=== PATIENT | male | born 1945 | race Caucasian/White ===

== ENCOUNTER 2017-03-31 13:05 | Emergency (ER) | payer MEDICARE, OTHER ==
--- NOTE | 2017-03-31 13:14 | EDM.PDOC ---
ED HPI GENERAL MEDICAL PROBLEM - General Chief Complaint: General Stated Complaint: COMGING FROM [facility] Time Seen by Provider: 03/31/17 13:11 Source of Information: Reports: Patient, Family, Old Records, RN, RN Notes Reviewed History Limitations: Reports: No Limitations - History of Present Illness INITIAL COMMENTS - FREE TEXT/NARRATIVE: [place] nurse called reporting that pt was being sent to the ER by POV with c/o increasing falls and confusion for the past one week with worsening symptoms. Pt has Hx of lung CA followed by oncologist at the [facility] in [place]. Pt reports several falls, but attributed them mostly to working outside and perhaps getting too tired, or possibly dehydrated, etc. Pt has not noticed any confusion. Pt's agrees with the Hx of falls, but states that she has noticed some mild confusion. Denies fever, chills, lightheadedness, visual changes, or new/unusual headaches. Onset: Gradual Duration: Week(s): (approx. 1 wk), Recurring Improves with: Reports: None Worsens with: Reports: None Associated Symptoms: Reports: No Other Symptoms Headache Pain Score (Numeric/FACES): 1 - Related Data Allergies Allergy/AdvReac Type Severity Reaction Status Date / Time No Known Allergies Allergy Verified 07/18/15 02:43 Home Meds: Home Meds Aprepitant [Emend] 80 mg PO DAILY PRN 07/18/15 [History] Atropine/Diphenoxylate [Diphenoxylate-Atropine] 2.5 mg PO Q6HR PRN 07/18/15 [ History] Dexamethasone 4 mg PO TID 07/18/15 [History] Enoxaparin [Lovenox] 80 mg SQ DAILY 07/18/15 [History] Hydrochlorothiazide/Lisinopril [Lisinopril/HCTZ 20-12.5 MG] 1 tab PO DAILY 07/18 [History] Loperamide HCl [Loperamide] 2 mg PO DAILY 07/18/15 [History] Past Medical History Cardiovascular History: Reports: Blood Clots/VTE/DVT, Hypertension Other Respiratory History: lung cancer Oncologic (Cancer) History: Reports: Lung Social & Family History - Family History Family Medical History: Noncontributory - Tobacco Use Smoking Status *Q: Never Smoker Second Hand Smoke Exposure: No - Caffeine Use Caffeine Use: Reports: Coffee - Recreational Drug Use Recreational Drug Use: No - Living Situation & Occupation Living situation: Reports: , with Spouse Occupation: Retired ED ROS GENERAL - Review of Systems Review Of Systems: ROS reveals no pertinent complaints other than HPI. ED EXAM, GENERAL - Physical Exam Exam: See Below Exam Limited By: No Limitations General Appearance: Alert, WD/WN, No Apparent Distress Eye Exam: Bilateral Eye: EOMI, Normal Fundi, Normal Inspection, PERRL Ears: Normal External Exam, Hearing Grossly Normal Nose: Normal Inspection, Normal Mucosa, No Blood Throat/Mouth: Normal Inspection, Normal Voice, No Airway Compromise Head: Atraumatic, Normocephalic Neck: Normal Inspection, Supple, Non-Tender, Full Range of Motion Respiratory/Chest: No Respiratory Distress, Lungs Clear, No Accessory Muscle Use , Decreased Breath Sounds Cardiovascular: Regular Rate, Rhythm, No Edema, No JVD GI/Abdominal: Normal Bowel Sounds, Soft, Non-Tender, No Distention (Male) Exam: Deferred Rectal (Males) Exam: Deferred Back Exam: Normal Inspection Extremities: Normal Inspection, Normal Range of Motion, Non-Tender, No Pedal Edema Neurological: Alert, Oriented, CN II-XII Intact, Normal Cognition, No Motor/ Sensory Deficits Psychiatric: Normal Affect, Normal Mood Skin Exam: Warm, Dry, Intact, Normal Color, No Rash Course - Vital Signs Last Recorded V/S: Last Vital Signs Temp 36.6 C 03/31/17 13:12 Pulse 60 03/31/17 14:58 Resp 16 03/31/17 14:58 BP 126/60 03/31/17 14:58 Pulse Ox 100 03/31/17 14:58 - Orders/Labs/Meds Labs: Laboratory Tests 03/31/17 03/31/17 03/31/17 Range/Units 13:45 13:45 13:49 WBC 3.3 L (5.0-10.0) 10^3/uL RBC 3.30 L (4.6-6.2) 10^6/uL Hgb 10.2 L (14.0-18.0) g/dL Hct 31.9 L (40.0-54.0) % MCV 96.7 (80-100) fL MCH 30.9 (27.0-34.0) pg MCHC 32.0 L (33.0-35.0) g/dL Plt Count 174 (150-450) 10^3/uL Neut % (Auto) 47.9 (42.2-75.2) % Lymph % (Auto) 34.0 (20.5-50.1) % [place] % (Auto) 16.3 H (2-8) % Eos % (Auto) 1.2 (1.0-3.0) % Baso % (Auto) 0.6 (0.0-1.0) % Sodium 138 (135-145) mmol/L Potassium 4.1 (3.6-5.0) mmol/L Chloride 105 (101-111) mmol/L Carbon Dioxide 26.0 (21.0-31.0) mmol/L Anion Gap 11.1 BUN 22 H (7-18) mg/dL Creatinine 1.6 H (0.6-1.3) mg/dL Est Cr Clr Drug Dosing 41.56 mL/min Estimated GFR (MDRD) 43 BUN/Creatinine Ratio 13.75 Glucose 105 (74-105) mg/dL Calcium 9.1 (8.4-10.2) mg/dl Total Bilirubin 0.7 (0.2-1.0) mg/dL AST 67 H (10-42) IU/L ALT 81 H (10-60) IU/L Alkaline Phosphatase 241 H (42-121) IU/L Total Protein 7.2 (6.7-8.2) g/dl Albumin 3.6 (3.2-5.5) g/dl Globulin 3.6 Albumin/Globulin Ratio 1.00 Urine Color Yellow (YELLOW) Urine Appearance Clear (CLEAR) Urine pH 6.5 (5.0-9.0) Ur Specific [place] 1.020 (1.005-1.030) Urine Protein Negative (NEGATIVE) Urine Glucose (UA) Negative (NEGATIVE) Urine Ketones Negative (NEGATIVE) Urine Occult Blood Trace-intact H (NEGATIVE) Urine Nitrite Negative (NEGATIVE) Urine Bilirubin Negative (NEGATIVE) Urine Urobilinogen 1.0 (0.2-1.0) mg/dL Ur Leukocyte Esterase Negative (NEGATIVE) Urine RBC 0-5 /HPF Urine WBC 0-5 (0-5/HPF) /HPF Urine Bacteria Rare (0-FEW/HPF) /HPF Urine Mucus Rare /LPF Meds: Medications Discontinued Medications Generic Name Dose Route Start Last Admin Trade Name Freq PRN Reason Stop Dose Admin Dexamethasone 12 mg 03/31/17 15:09 03/31/17 15:15 Dexamethasone IVPUSH 03/31/17 15:10 12 mg ONETIME ONE Administration Iopamidol 50 ml 03/31/17 14:07 03/31/17 14:08 Isovue-300 (61%) IVPUSH 03/31/17 14:08 50 ml ONETIME ONE Administration Sodium Chloride 10 ml 03/31/17 13:23 Saline Flush FLUSH ASDIRECTED PRN Keep Vein Open - Radiology Interpretation Free Text/Narrative:: CT Head: Metastatic lesion at the right cerebral hemisphere with tremendous edema and mass effect per Rad. report. CT Results Date: 03/31/17 - Re-Assessments/Exams Free Text/Narrative Re-Assessment/Exam: Consulted with pt's oncologist at [facility]. He agrees to accept pt as a direct admit. Pt will be transferred by ground ambulance to his service. Departure - Departure Time of Disposition: 15:00 Disposition: DC/Tfer to Acute Hospital 02 Condition: Serious Clinical Impression: Metastatic cancer to brain Lung cancer, primary, with metastasis from lung to other site Qualifiers: Laterality: unspecified laterality Qualified Code(s): C34.90 - Malignant neoplasm of unspecified part of unspecified bronchus or lung - Discharge Information Referrals: Esvin Burk MD [Primary Care Provider] - Forms: ED Department Discharge
[2017-03-31] MEDS ORDERED: Sodium Chloride 0.9% 10 ML Syringe FLUSH PRN (13:23)
[2017-03-31] MEDS ORDERED: Iopamidol 612 MG/ML 50 ML SDV IVPUSH ONE (14:07)
--- NOTE | 2017-03-31 14:47 | CT ---
Clinical history: 71-year-old 188 pound hypertensive male with confusion and balance difficulties kn own to have stage V metastatic colon cancer (liver and lungs). Scan technique: Volume acquisition of data emergency CT scan of the head and brain obtained without and with IV contrast while patient was lying supine on the Siemens multislice CT scanner [place], [place]. All data archived in the PAC system for storage, reformatting and study. Interpretation: Abnormal. Solitary large 2.5 cm diameter round vascular mass lesion with central necrosis identified in the pe riphery of the right parietal lobe with extensive surrounding parietal and ipsilateral right tempora l lobe edema contributing effacement of the underlying ipsilateral ventricle and at least 5 mm midli ne shift i.e. significant increased intracranial pressure. No other supratentorial or posterior fossa mass lesion. No sign of acute intracerebral/intraventricu lar/subarachnoid bleed. No abnormal extracerebral/intracranial epidural or subdural hematoma. Uniformly thick bony calvarium. Symmetric clear pneumatization of the mastoid and paranasal sinuses. CONCLUSION: Metastatic lesion right cerebral hemisphere with tremendous edema and mass effect.
[2017-03-31] MEDS ORDERED: Dexamethasone 4 MG/ML SDV IVPUSH ONE (15:09)
[2017-03-31 15:10] VITALS: BP 126/60
== END 2017-03-31 15:50 ==
LOC: DL.ED 13:05
DX: C79.31 Secondary malignant neoplasm of brain (principal); C34.90 Malignant neoplasm of unspecified part of unspecified bronchus or lung; I10 Essential (primary) hypertension; Z86.718 Personal history of other venous thrombosis and embolism; Z79.899 Other long term (current) drug therapy
CPT/HCPCS: 36415; 70470; 80053; 81001; 85025; 96374; 99284; J1100; Q9967

== ENCOUNTER 2017-07-03 08:39 | Emergency (ER) | payer MEDICARE, OTHER ==
[2017-07-03 08:50] VITALS: BP 113/60
--- NOTE | 2017-07-03 09:04 | EDM.PDOC ---
ED HPI GENERAL MEDICAL PROBLEM - General Chief Complaint: Gastrointestinal Problem Stated Complaint: RECTAL BLEEDING, HX OF COLON CANCER Time Seen by Provider: 07/03/17 09:04 Source of Information: Reports: Patient, Family, Old Records, RN, RN Notes Reviewed History Limitations: Reports: No Limitations - History of Present Illness INITIAL COMMENTS - FREE TEXT/NARRATIVE: Arrives from home by POV with c/o onset of blood in stool last night. Pt reports that early this morning he had a very dark bloody BM, then a second smaller BM which was also very bloody but not as dark. Pt denies pain, N/V, fever, chills, urinary Sx's, or fecal incontinence. Old record indicate pt has Hx of colon CA treated at [facility] by Dr. Hollins. Records indicate colon CA Dx' d in 03/2011 which was stage IIIB located in the sigmoid colon at time of diagnosis. Initial treatment with adjuvant FOLOFOX chemo for 6 months, and reported disease free for 1 year. Pt was found to have liver mets approx. 1 year after initial Tx. Since that time he has had liver, lung, and brain mets. Pt has failed several chemo regimens. Pt recently began a salvage regimen of ramucirumab, and FOLFIRI combined with antiVEGF, antibody ramucirumab, last treatment on 06/28/17. Duration: Getting Worse Location: Reports: Abdomen Severity: Moderate Improves with: Reports: None Worsens with: Reports: None Associated Symptoms: Reports: No Other Symptoms - Related Data Allergies Allergy/AdvReac Type Severity Reaction Status Date / Time No Known Allergies Allergy Verified 07/03/17 08:46 Home Meds: Home Meds Aprepitant [Emend] 80 mg PO DAILY PRN 07/18/15 [History] Atropine/Diphenoxylate [Diphenoxylate-Atropine] 2.5 mg PO Q6HR PRN 07/18/15 [ History] Dexamethasone 4 mg PO TID 07/18/15 [History] Enoxaparin [Lovenox] 80 mg SQ DAILY 07/18/15 [History] Hydrochlorothiazide/Lisinopril [Lisinopril/HCTZ 20-12.5 MG] 1 tab PO DAILY 07/18 [History] Loperamide HCl [Loperamide] 2 mg PO DAILY 07/18/15 [History] glipiZIDE [Glucotrol] 5 mg PO DAILY 07/03/17 [History] Past Medical History HEENT History: Reports: Impaired Vision Cardiovascular History: Reports: Blood Clots/VTE/DVT, Hypertension Other Respiratory History: lung cancer Endocrine/Metabolic History: Reports: Diabetes, Type II Oncologic (Cancer) History: Reports: Brain, Colon, Liver, Lung - Past Surgical History GI Surgical History: Reports: Other (See Below) Other GI Surgeries/Procedures: colon cancer Social & Family History - Family History Family Medical History: Noncontributory - Tobacco Use Smoking Status *Q: Never Smoker Second Hand Smoke Exposure: No - Caffeine Use Caffeine Use: Reports: Coffee - Recreational Drug Use Recreational Drug Use: No - Living Situation & Occupation Living situation: Reports: , with Spouse Occupation: Retired ED ROS GENERAL - Review of Systems Review Of Systems: ROS reveals no pertinent complaints other than HPI. ED EXAM, GI/ABD - Physical Exam Exam: See Below Exam Limited By: No Limitations General Appearance: Alert, No Apparent Distress, Thin, Other (chronically ill appearing) Eyes: Bilateral: Normal Appearance Ears: Normal External Exam, Hearing Grossly Normal Nose: Normal Inspection Throat/Mouth: Normal Inspection Head: Atraumatic, Normocephalic Neck: Normal Inspection, Supple, Non-Tender, Full Range of Motion Respiratory/Chest: No Respiratory Distress, Lungs Clear, Normal Breath Sounds, No Accessory Muscle Use, Chest Non-Tender Cardiovascular: Regular Rate, Rhythm GI/Abdominal Exam: Normal Bowel Sounds, Soft, Non-Tender, No Distention (Male) Exam: Deferred Rectal (Males) Exam: Bloody Stool Back Exam: Normal Inspection Extremities: Normal Range of Motion, Non-Tender, Normal Capillary Refill, Pedal Edema Neurological: Alert, Oriented, CN II-XII Intact, Normal Cognition, No Motor/ Sensory Deficits Psychiatric: Normal Mood Skin Exam: Warm, Dry, Intact, No Rash, Pallor Course - Vital Signs Last Recorded V/S: Last Vital Signs Temp 36.3 C 07/03/17 08:47 Pulse 66 07/03/17 08:47 Resp 18 07/03/17 08:47 BP 113/60 07/03/17 08:47 Pulse Ox 100 07/03/17 08:47 - Orders/Labs/Meds Orders: Active Orders 24 hr Category Date Time Status Hemoccult, Stool [OCCULT BLOOD DIAGNOSTIC] [OP] Stat Lab 07/03/17 09:05 Uncollected Pantoprazole [ProTONIX IV] 40 mg Med 07/03/17 10:41 Active Sodium Chloride 0.9% [Normal Saline] 100 ml IV .CONTINUOS SOLOMON Bandage [Elastic Wrap] [OM.PC] Routine Oth 07/03/17 09:04 Ordered Medication Orders Pantoprazole Sodium 40 mg/ (Sodium Chloride) 100 mls @ 20 mls/hr IV .CONTINUOS [facility] Labs: Laboratory Tests 07/03/17 07/03/17 07/03/17 Range/Units 09:12 09:12 09:12 WBC 7.1 (5.0-10.0) 10^3/uL RBC 2.61 L (4.6-6.2) 10^6/uL Hgb 7.9 L (14.0-18.0) g/dL Hct 24.6 L (40.0-54.0) % MCV 94.3 (80-100) fL MCH 30.3 (27.0-34.0) pg MCHC 32.1 L (33.0-35.0) g/dL Plt Count 244 (150-450) 10^3/uL Neut % (Auto) 74.8 (42.2-75.2) % Lymph % (Auto) 20.5 (20.5-50.1) % [place] % (Auto) 4.0 (2-8) % Eos % (Auto) 0.6 L (1.0-3.0) % Baso % (Auto) 0.1 (0.0-1.0) % PT 11.6 (9.0-12.0) SEC INR 1.2 (0.9-1.2) APTT 38.8 H (22.0-34.0) SEC Sodium 138 (135-145) mmol/L Potassium 4.1 (3.6-5.0) mmol/L Chloride 108 (101-111) mmol/L Carbon Dioxide 22.0 (21.0-31.0) mmol/L Anion Gap 12.1 BUN 36 H (7-18) mg/dL Creatinine 1.3 (0.6-1.3) mg/dL Est Cr Clr Drug Dosing 52.87 mL/min Estimated GFR (MDRD) 55 BUN/Creatinine Ratio 27.69 Glucose 154 H (74-105) mg/dL Calcium 7.8 L (8.4-10.2) mg/dl Total Bilirubin 0.8 (0.2-1.0) mg/dL AST 25 (10-42) IU/L ALT 27 (10-60) IU/L Alkaline Phosphatase 122 H (42-121) IU/L Total Protein 5.0 L (6.7-8.2) g/dl Albumin 2.5 L (3.2-5.5) g/dl Globulin 2.5 Albumin/Globulin Ratio 1.00 Amylase 21 L (28-100) U/L Lipase 16 L (22-51) U/L Urine Color (YELLOW) Urine Appearance (CLEAR) Urine pH (5.0-9.0) Ur Specific [place] (1.005-1.030) Urine Protein (NEGATIVE) Urine Glucose (UA) (NEGATIVE) Urine Ketones (NEGATIVE) Urine Occult Blood (NEGATIVE) Urine Nitrite (NEGATIVE) Urine Bilirubin (NEGATIVE) Urine Urobilinogen (0.2-1.0) mg/dL Ur Leukocyte Esterase (NEGATIVE) Urine RBC /HPF Urine WBC (0-5/HPF) /HPF Ur Epithelial Cells /HPF Urine Bacteria (0-FEW/HPF) /HPF Urine Mucus /LPF 07/03/17 Range/Units 10:00 WBC (5.0-10.0) 10^3/uL RBC (4.6-6.2) 10^6/uL Hgb (14.0-18.0) g/dL Hct (40.0-54.0) % MCV (80-100) fL MCH (27.0-34.0) pg MCHC (33.0-35.0) g/dL Plt Count (150-450) 10^3/uL Neut % (Auto) (42.2-75.2) % Lymph % (Auto) (20.5-50.1) % [place] % (Auto) (2-8) % Eos % (Auto) (1.0-3.0) % Baso % (Auto) (0.0-1.0) % PT (9.0-12.0) SEC INR (0.9-1.2) APTT (22.0-34.0) SEC Sodium (135-145) mmol/L Potassium (3.6-5.0) mmol/L Chloride (101-111) mmol/L Carbon Dioxide (21.0-31.0) mmol/L Anion Gap BUN (7-18) mg/dL Creatinine (0.6-1.3) mg/dL Est Cr Clr Drug Dosing mL/min Estimated GFR (MDRD) BUN/Creatinine Ratio Glucose (74-105) mg/dL Calcium (8.4-10.2) mg/dl Total Bilirubin (0.2-1.0) mg/dL AST (10-42) IU/L ALT (10-60) IU/L Alkaline Phosphatase (42-121) IU/L Total Protein (6.7-8.2) g/dl Albumin (3.2-5.5) g/dl Globulin Albumin/Globulin Ratio Amylase (28-100) U/L Lipase (22-51) U/L Urine Color Dark yellow (YELLOW) Urine Appearance Slightly cloudy (CLEAR) Urine pH 5.5 (5.0-9.0) Ur Specific [place] 1.015 (1.005-1.030) Urine Protein Negative (NEGATIVE) Urine Glucose (UA) Negative (NEGATIVE) Urine Ketones Negative (NEGATIVE) Urine Occult Blood Negative (NEGATIVE) Urine Nitrite Negative (NEGATIVE) Urine Bilirubin Negative (NEGATIVE) Urine Urobilinogen 0.2 (0.2-1.0) mg/dL Ur Leukocyte Esterase Negative (NEGATIVE) Urine RBC 0-5 /HPF Urine WBC Not seen (0-5/HPF) /HPF Ur Epithelial Cells Rare /HPF Urine Bacteria Not seen (0-FEW/HPF) /HPF Urine Mucus Many H /LPF Meds: Medications Generic Name Dose Route Start Last Admin Trade Name Freq PRN Reason Stop Dose Admin Pantoprazole Sodium 40 mg/ 100 mls @ 20 mls/hr 07/03/17 10:41 Sodium Chloride IV .CONTINUOS AUBREE Discontinued Medications Generic Name Dose Route Start Last Admin Trade Name Freq PRN Reason Stop Dose Admin Pantoprazole Sodium 80 mg 07/03/17 10:41 Protonix Iv IVPUSH 07/03/17 10:42 .BOLUS ONE Departure - Departure Time of Disposition: 10:45 Disposition: DC/Tfer to Acute Hospital 02 Condition: Serious Clinical Impression: History of colon cancer GI bleed Qualifiers: GI bleed type/associated pathology: unspecified gastrointestinal hemorrhage type Qualified Code(s): K92.2 - Gastrointestinal hemorrhage, unspecified - Discharge Information Forms: ED Department Discharge, Interfacility Transfer EMTALA - My Orders Last 24 Hours: My Active Orders 07/03/17 09:04 SOLOMON Bandage [Elastic Wrap] [OM.PC] Routine 07/03/17 09:05 Hemoccult, Stool [OCCULT BLOOD DIAGNOSTIC] [OP] Stat 07/03/17 10:41 Pantoprazole [ProTONIX IV] 40 mg Sodium Chloride 0.9% [Normal Saline] 100 ml IV .CONTINUOS - Assessment/Plan Last 24 Hours: My Active Orders 07/03/17 09:04 SOLOMON Bandage [Elastic Wrap] [OM.PC] Routine 07/03/17 09:05 Hemoccult, Stool [OCCULT BLOOD DIAGNOSTIC] [OP] Stat 07/03/17 10:41 Pantoprazole [ProTONIX IV] 40 mg Sodium Chloride 0.9% [Normal Saline] 100 ml IV .CONTINUOS
[2017-07-03] MEDS ORDERED: Pantoprazole 40 MG in Sodium Chloride 0.9% 100 ML IV SCH (10:41)
[2017-07-03] MEDS ORDERED: Pantoprazole 40 MG Vial IVPUSH ONE (10:41)
== END 2017-07-03 11:14 ==
LOC: DL.ED 08:39
DX: K92.2 Gastrointestinal hemorrhage, unspecified (principal); H54.7 Unspecified visual loss; I10 Essential (primary) hypertension; E11.9 Type 2 diabetes mellitus without complications; Z85.038 Personal history of other malignant neoplasm of large intestine; Z79.899 Other long term (current) drug therapy; Z85.841 Personal history of malignant neoplasm of brain; Z85.05 Personal history of malignant neoplasm of liver; Z85.118 Personal history of other malignant neoplasm of bronchus and lung
CPT/HCPCS: 36415; 80053; 81001; 82150; 83690; 85025; 85610; 85730; 96365; 96376; 99285; C9113; J7050; 99284

== ENCOUNTER 2017-07-30 08:24 | Emergency (ER) | payer MEDICARE, OTHER ==
[2017-07-30] MEDS ORDERED: Sodium Chloride 0.9% 1,000 ML IV SCH (08:45)
--- NOTE | 2017-07-30 08:47 | EDM.PDOC ---
ED HPI GENERAL MEDICAL PROBLEM - General Chief Complaint: Gastrointestinal Problem Stated Complaint: BY AMBULANCE Time Seen by Provider: 07/30/17 08:42 Source of Information: Reports: Patient, EMS, EMS Notes Reviewed History Limitations: Reports: No Limitations - History of Present Illness INITIAL COMMENTS - FREE TEXT/NARRATIVE: 71 yo white male c/o blood per rectum last PM and abdomen discomfort this AM. PMHx. Colon cancer w/ Brain mets. Pt. s/p chemo mon-mon @ [facility] and d/c'd home monday. Per patient not eating or drinking well. Onset Date: 07/29/17 Onset Time: 07:00 Duration: Hour(s): Location: Reports: Abdomen, Generalized Quality: Reports: Dull Severity: Moderate Improves with: Reports: None Worsens with: Reports: None Context: Reports: Other (PMHx. Colon cancer w/ Brain METS) Associated Symptoms: Reports: Malaise, Weakness - Related Data Allergies Allergy/AdvReac Type Severity Reaction Status Date / Time No Known Allergies Allergy Verified 07/30/17 08:45 Home Meds: Home Meds Dexamethasone 1 mg PO DAILY 07/18/15 [History] Enoxaparin [Lovenox] 80 mg SQ Q12H 07/18/15 [History] Loperamide HCl [Loperamide] 2 mg PO ASDIRECTED 07/18/15 [History] Mirtazapine 7.5 mg PO BEDTIME 07/30/17 [History] Omeprazole 20 mg PO DAILY 07/30/17 [History] Ondansetron [Zofran] 8 mg PO Q8H 07/30/17 [History] Pegfilgrastim [Neulasta] 6 mg SUBCUT ASDIRECTED 07/30/17 [History] Prochlorperazine Maleate [Compazine] 10 mg PO Q6H 07/30/17 [History] Sildenafil Citrate [Sildenafil] 50 mg PO ASDIRECTED 07/30/17 [History] Past Medical History HEENT History: Reports: Impaired Vision Cardiovascular History: Reports: Blood Clots/VTE/DVT, Hypertension Respiratory History: Reports: Other (See Below) Other Respiratory History: lung cancer Genitourinary History: Reports: None Musculoskeletal History: Reports: None Neurological History: Reports: Neuropathy, Peripheral Psychiatric History: Reports: None Endocrine/Metabolic History: Reports: Diabetes, Type II Hematologic History: Reports: Blood Transfusion(s) Immunologic History: Reports: None Oncologic (Cancer) History: Reports: Brain, Colon, Liver, Lung Dermatologic History: Reports: None - Infectious Disease History Infectious Disease History: Reports: Chicken Pox, Measles - Past Surgical History GI Surgical History: Reports: Other (See Below) Other GI Surgeries/Procedures: colon cancer Social & Family History - Family History Family Medical History: Noncontributory - Tobacco Use Smoking Status *Q: Never Smoker Second Hand Smoke Exposure: No - Caffeine Use Caffeine Use: Reports: Coffee - Recreational Drug Use Recreational Drug Use: No - Living Situation & Occupation Living situation: Reports: , with Spouse Occupation: Retired ED ROS GENERAL - Review of Systems Review Of Systems: See Below Constitutional: Reports: Weakness, Fatigue, Decreased Appetite, Weight Loss HEENT: Reports: No Symptoms Respiratory: Reports: No Symptoms Cardiovascular: Reports: No Symptoms Endocrine: Reports: No Symptoms GI/Abdominal: Reports: Abdominal Pain, Bloody Stool : Reports: No Symptoms Musculoskeletal: Reports: No Symptoms Skin: Reports: No Symptoms Neurological: Reports: Weakness Psychiatric: Reports: No Symptoms Hematologic/Lymphatic: Reports: No Symptoms Immunologic: Reports: No Symptoms ED EXAM, GENERAL - Physical Exam Exam: See Below Exam Limited By: No Limitations General Appearance: Alert, Thin, Cachetic Eye Exam: Bilateral Eye: EOMI, PERRL Ears: Normal External Exam Nose: Normal Inspection Throat/Mouth: Normal Inspection, Normal Lips Head: Atraumatic, Normocephalic Neck: Normal Inspection, Supple Respiratory/Chest: No Respiratory Distress, Lungs Clear Cardiovascular: Normal Peripheral Pulses, Regular Rate, Rhythm GI/Abdominal: Normal Bowel Sounds, Soft, No Mass (Male) Exam: No Hernia Rectal (Males) Exam: Heme + Stool Back Exam: Normal Inspection Extremities: Normal Inspection Neurological: Alert, Oriented, CN II-XII Intact Psychiatric: Normal Affect Skin Exam: Warm Lymphatic: No Adenopathy Course - Vital Signs Last Recorded V/S: Last Vital Signs Temp 36.4 C 07/30/17 10:24 Pulse 58 L 07/30/17 10:24 Resp 16 07/30/17 10:24 BP 90/47 L 07/30/17 10:24 Pulse Ox 96 07/30/17 09:46 - Orders/Labs/Meds Labs: Laboratory Tests 07/30/17 07/30/17 07/30/17 Range/Units 08:52 08:52 08:52 WBC 24.1 H (5.0-10.0) 10^3/uL RBC 2.09 L (4.6-6.2) 10^6/uL Hgb 6.3 L* D (14.0-18.0) g/dL Hct 19.8 L* (40.0-54.0) % MCV 94.7 (80-100) fL MCH 30.1 (27.0-34.0) pg MCHC 31.8 L (33.0-35.0) g/dL Plt Count 135 L D (150-450) 10^3/uL Neut % (Auto) 93.9 H (42.2-75.2) % Lymph % (Auto) 4.6 L (20.5-50.1) % Corson % (Auto) 1.4 L (2-8) % Eos % (Auto) 0.1 L (1.0-3.0) % Baso % (Auto) 0.0 (0.0-1.0) % PT (9.0-12.0) SEC INR (0.9-1.2) APTT (22.0-34.0) SEC D-Dimer, Quantitative < 100 (0-400) ng/mL Sodium 144 (135-145) mmol/L Potassium 3.4 L (3.6-5.0) mmol/L Chloride 108 (101-111) mmol/L Carbon Dioxide 28.0 (21.0-31.0) mmol/L Anion Gap 11.4 BUN 38 H (7-18) mg/dL Creatinine 1.2 (0.6-1.3) mg/dL Est Cr Clr Drug Dosing 55.42 mL/min Estimated GFR (MDRD) 60 BUN/Creatinine Ratio 31.66 Glucose 106 H (74-105) mg/dL Calcium 7.7 L (8.4-10.2) mg/dl Total Bilirubin 0.5 (0.2-1.0) mg/dL AST 47 H (10-42) IU/L ALT 24 (10-60) IU/L Alkaline Phosphatase 105 (42-121) IU/L Troponin I < 0.02 (0.00-0.02) ng/ml Total Protein 4.3 L (6.7-8.2) g/dl Albumin 2.1 L (3.2-5.5) g/dl Globulin 2.2 Albumin/Globulin Ratio 0.95 Blood Type Gel Antibody Screen Crossmatch 07/30/17 07/30/17 Range/Units 08:52 08:52 WBC (5.0-10.0) 10^3/uL RBC (4.6-6.2) 10^6/uL Hgb (14.0-18.0) g/dL Hct (40.0-54.0) % MCV (80-100) fL MCH (27.0-34.0) pg MCHC (33.0-35.0) g/dL Plt Count (150-450) 10^3/uL Neut % (Auto) (42.2-75.2) % Lymph % (Auto) (20.5-50.1) % [place] % (Auto) (2-8) % Eos % (Auto) (1.0-3.0) % Baso % (Auto) (0.0-1.0) % PT 15.3 H D (9.0-12.0) SEC INR 1.5 H (0.9-1.2) APTT 34.7 H (22.0-34.0) SEC D-Dimer, Quantitative (0-400) ng/mL Sodium (135-145) mmol/L Potassium (3.6-5.0) mmol/L Chloride (101-111) mmol/L Carbon Dioxide (21.0-31.0) mmol/L Anion Gap BUN (7-18) mg/dL Creatinine (0.6-1.3) mg/dL Est Cr Clr Drug Dosing mL/min Estimated GFR (MDRD) BUN/Creatinine Ratio Glucose (74-105) mg/dL Calcium (8.4-10.2) mg/dl Total Bilirubin (0.2-1.0) mg/dL AST (10-42) IU/L ALT (10-60) IU/L Alkaline Phosphatase (42-121) IU/L Troponin I (0.00-0.02) ng/ml Total Protein (6.7-8.2) g/dl Albumin (3.2-5.5) g/dl Globulin Albumin/Globulin Ratio Blood Type O POSITIVE Gel Antibody Screen Negative Crossmatch See Detail Meds: Medications Discontinued Medications Generic Name Dose Route Start Last Admin Trade Name Tania PRN Reason Stop Dose Admin Furosemide 20 mg 07/30/17 09:09 Lasix IVPUSH 07/30/17 09:10 NOW ONE Sodium Chloride 1,000 mls @ 125 mls/hr 07/30/17 08:45 07/30/17 09:32 Normal Saline IV 125 mls/hr ASDIRECTED AUBREE Administration Ondansetron HCl 8 mg/ Sodium 54 mls @ 200 mls/hr 07/30/17 08:57 07/30/17 09: 32 Chloride IV 07/30/17 09:13 200 mls/hr ONETIME ONE Administration Departure - Departure Time of Disposition: 10:55 Disposition: DC/Tfer to Acute Hospital 02 Condition: Fair Clinical Impression: Gastrointestinal bleed Qualifiers: GI bleed type/associated pathology: unspecified gastrointestinal hemorrhage type Qualified Code(s): K92.2 - Gastrointestinal hemorrhage, unspecified - Discharge Information Referrals: Traci London I, DENI, PAErnestoC [Primary Care Provider] - Forms: ED Department Discharge
[2017-07-30] MEDS ORDERED: Ondansetron 8 MG in Sodium Chloride 0.9% 50 ML IV ONE (08:57)
[2017-07-30] MEDS ORDERED: Furosemide 40 MG/4 ML VIAL IVPUSH ONE (09:09)
[2017-07-30 09:23] LABS: CHLORIDE,CL 108 mmol/L (101-111); SODIUM,NA 144 mmol/L (135-145)
[2017-07-30 10:29] VITALS: BP 90/47
== END 2017-07-30 10:30 ==
LOC: DL.ED 08:24
DX: K92.2 Gastrointestinal hemorrhage, unspecified (principal); I10 Essential (primary) hypertension; E11.9 Type 2 diabetes mellitus without complications; Z85.038 Personal history of other malignant neoplasm of large intestine; Z79.899 Other long term (current) drug therapy
CPT/HCPCS: 36415; 36430; 74022; 80053; 84484; 85025; 85379; 85610; 85730; 86850; 86900; 86901; 86920; 86922; 96361; 96365; 99285; J2405; J7030; J7050; P9016; 99284